=== PATIENT | male | born 1935 | race Caucasian/White ===

== ENCOUNTER 2018-05-01 12:50 | Inpatient (IN) | payer OTHER ==
[~2018-05-01] VITALS: Ht 172.7 cm; Wt 64.9 kg
[~2018-05-01 12:50] MED LIST: CARDURA XL4 MG; CARdura 4MG TABLET PO; FOLIC ACID1 MG PO; NEURONTIN300 MG; Neurin-Sl Tablet Sl SL; Neurontin PO; TAMS0.4C; TAMS0.4C PO; ZOFRAN4 MG
== END 2018-05-04 15:50 | disposition home or self-care (01) | DRG 394 ==
LOC: ER 12:50 → SEC-K 18:12 → MEDI 18:12
PROC: 0D758ZZ Dilation of Esophagus, Via Natural or Artificial Opening Endoscopic (ICD-10-PCS; principal; 2018-05-02)
PROC: 0DH63UZ Insertion of Feeding Device into Stomach, Percutaneous Approach (ICD-10-PCS; 2018-05-02)
DX: K94.23 Gastrostomy malfunction (principal); N17.8 Other acute kidney failure; K22.2 Esophageal obstruction; R13.19 Other dysphagia; E86.0 Dehydration; I10 Essential (primary) hypertension; N40.0 Benign prostatic hyperplasia without lower urinary tract symptoms